=== PATIENT | male | born 1990 | race African-American/Black ===

== ENCOUNTER 2021-04-16 18:16 | Inpatient (IN) | payer OTHER, SELFPAY ==
[2021-04-16] VITALS (9 sets, daily range): BP systolic 142–158; BP diastolic 54–89; PULSE 53–57; RESP 15–20; TEMP 36.7–37.4; O2SAT 100; BMI 30.7
--- NOTE | ~2021-04-16 | US_ITS ---
EXAMINATION: US ABDOMEN LIMITED CLINICAL INFORMATION: Right upper quadrant pain questionable cholecystitis. COMPARISON: None TECHNIQUE: Real-time imaging of the right upper quadrant abdominal viscera. FINDINGS: GALLBLADDER: Gallbladder is abnormal with thick and irregular wall measuring between 0.6 and 1.7 cm with pericholecystic fluid collection is impacted in gallbladder neck 2.1 x 0.9 x 1.4 cm stone. Sonographic Hazel sign is positive for that COMMON BILE DUCT: Normal in caliber measuring 0.7 cm in diameter. US/US abdomen limited IMPRESSION: Limited right upper quadrant ultrasound revealed features of acute calculus cholecystitis
[2021-04-16 18:42] LABS: MANUAL DIFF FLAG NO
[2021-04-16 18:44] LABS: Basophils Absolute Auto 0.1 X10*3/uL (0.0-0.2); Basophils Percent Auto 0.5 % (0-2); Eosinophils Percent Auto 0.1 % (0-4); Hemoglobin 15.2 g/dl (14.0-18.0); Imm Gran Abs Auto 0.08 X10*3/uL (0.00-0.03); Imm Gran Pct Auto 0.5 % (0.0-0.4); Lymphocytes Absolute Auto 1.9 X10*3/uL (1.2-4.9); Lymphocytes Percent Auto 11.4 % (20-40); Mean Corpuscular HGB Conc 35.3 g/dl (31.0-36.0); Mean Corpuscular Hemoglobin 29.2 pg (27.0-33.0); Mean Corpuscular Volume 82.7 fL (80.0-98.0); Mean Platelet Volume 9.8 fL (9.4-12.4); Monocytes Absolute Auto 0.8 X10*3/uL (0.1-1.2); Monocytes Percent Auto 4.9 % (2-11); Neutrophils Absolute Auto 13.6 x10*3/uL (2.0-8.3); Neutrophils Percent Auto 82.6 % (45-73); Platelet Count 399 X10*3/uL (160-400); Red Cell Distribution Width 12.8 % (11.0-16.0); White Blood Count 16.5 X10*3/uL (4.8-10.8)
[2021-04-16 18:52] LABS: Appearance Urine CLEAR; Color Urine YELLOW; Glucose Urine UA NEG (NEG); Leukocyte Esterase Urine NEG (NEG); Nitrite Urine NEG (NEG); PH >= 9.0 (5.0-8.0); UACC Culture Trigger NO; Urine Blood NEG (NEG); Urine Ketones 40 MG/DL (NEG); Urine Protein 1+ MG/DL (NEG-TRACE)
[2021-04-16 18:59] LABS: RBC Urine 0-2 /HPF (0); WBC Urine 0 /HPF (0-4)
[2021-04-16 19:00] LABS: Mucus Urine 1+ /LPF
[2021-04-16 19:09] LABS: COVID-19 Test Negative (Negative)
[2021-04-16 19:12] LABS: Alanine Aminotransferase 75 U/L (0-40); Albumin Level 5.2 g/dL (3.5-5.0); Alkaline Phosphatase 54 U/L (39-117); Anion Gap 13 (12-20); Aspartate Amino Transferase 30 U/L (5-37); Bilirubin Direct 0.5 mg/dL (0.0-0.5); Bilirubin Total 1.2 mg/dL (0.0-1.0); Blood Urea Nitrogen 11 mg/dL (9-16); Calcium 10.9 mg/dL (8.4-10.2); Carbon Dioxide 27 mmol/L (22-29); Chloride 105 mmol/L (96-108); Estimated Glomerular Filt Rate > 60; Glucose Random 117 mg/dL (60-115); Lipase 18 U/L (8-78); Potassium 4.2 mmol/L (3.3-5.1); Sodium 141 mmol/L (135-145); Total Protein 8.3 g/dL (6.5-8.0)
--- NOTE | 2021-04-16 20:24 | ED_ITS ---
HPI - Abdominal Pain General Chief Complaint: Abdominal Pain Stated Complaint: severe abdominal pain, chills, cold sweats, throw Time Seen by Provider: 04/16/21 20:24 Source: patient Mode of arrival: ambulatory Limitations: no limitations History of Present Illness HPI narrative: Patient with no significant past medical history workup today went to work started having right upper quadrant and epigastric abdominal pain patient with nausea and vomiting no fever no chills been is getting worse no urinary complaints no back pain or radiation of the pain to the back no blood in the stool Related Data Home Medications Medication Instructions Recorded Confirmed No Known Home Meds 04/16/21 04/16/21 Allergies Allergy/AdvReac Type Severity Reaction Status Date / Time Iodinated Contrast Media Allergy Anxiety Verified 04/16/21 18:22 [Contrast Dye] Review of Systems Review of Systems Yes all other systems are reviewed and are negative [facility] Social History Social History Advance Directives: No Advance Directives Information Provided: Yes Physical Exam ED Vital Signs: Vital Signs - 24 hr 04/16/21 18:22 04/16/21 19:43 04/16/21 20:53 Temperature 98.6 F 98.0 F Pulse Rate 53 54 Respiratory Rate 18 15 20 Blood Pressure 151/54 H 144/78 H Pulse Oximetry 100 100 04/16/21 21:01 04/16/21 22:00 04/16/21 22:04 Temperature 99.4 F Pulse Rate 57 55 55 Respiratory Rate 18 16 16 Blood Pressure 142/84 H 155/80 H 155/80 H Pulse Oximetry 100 100 04/16/21 22:08 Temperature Pulse Rate Respiratory Rate 16 Blood Pressure Pulse Oximetry BMI result Body Mass Index 30.7 Appearance: Alert. Oriented X3. In moderate distress Eyes: No pallor or icterus ENT: Pharynx normal. Oral Mucosa moist Neck: Normal inspection. Neck supple. CVS: Normal heart rate and rhythm. Pulses normal. Respiratory: No respiratory distress. Equal air entry bilateral, no wheezing/rales/rhonchi Abdomen: Soft , tenderness at right upper quadrant epigastric area with guarding no rebound tenderness Hazel sign positive Bowel sounds are present, no mass palpable, no CVA tenderness Skin: Skin warm and dry. Normal skin color. Normal skin turgor. Extremities: No lower extremity edema. No calf tenderness Neuro: Oriented X 3. MDM - Abdominal Pain MDM Narrative Medical decision making narrative: Patient right upper quadrant pain ultrasound showed 2.1 x 0.9 x 1.4 cm gallbladder neck stone pericholecystic fluid collection suggestive of cholecystitis case discussed Dr. Louise will admit patient for cholecystectomy IV Zosyn was given Lab Data Attestation: I reviewed the patient's lab results. Result diagrams: 04/16/21 18:30 04/16/21 18:30 Labs: Lab Results 04/16/21 04/16/21 04/16/21 Range/Units 18:30 18:30 18:30 WBC 16.5 H (4.8-10.8) X10*3/uL RBC 5.20 (4.60-5.80) X10*6/uL Hgb 15.2 (14.0-18.0) g/dl Hct 43.0 (42.0-52.0) % MCV 82.7 (80.0-98.0) fL MCH 29.2 (27.0-33.0) pg MCHC 35.3 (31.0-36.0) g/dl RDW 12.8 (11.0-16.0) % Plt Count 399 (160-400) X10*3/uL MPV 9.8 (9.4-12.4) fL Immature Gran % (Auto) 0.5 H (0.0-0.4) % Neut % (Auto) 82.6 H (45-73) % Lymph % (Auto) 11.4 L (20-40) % [place] % (Auto) 4.9 (2-11) % Eos % (Auto) 0.1 (0-4) % Baso % (Auto) 0.5 (0-2) % Lymph # (Auto) 1.9 (1.2-4.9) X10*3/uL [place] # (Auto) 0.8 (0.1-1.2) X10*3/uL Eos # (Auto) 0.0 (0.0-0.4) X10*3/uL Baso # (Auto) 0.1 (0.0-0.2) X10*3/uL Abs Immat Gran (auto) 0.08 H (0.00-0.03) X10*3/uL Absolute Neuts (auto) 13.6 H (2.0-8.3) x10*3/uL Absolute Nucleated RBC 0.000 (0.0-0.012) X10*3/uL Nucleated RBC % (auto) 0.0 (0.0-0.2) /100WBC Sodium 141 (135-145) mmol/L Potassium 4.2 (3.3-5.1) mmol/L Chloride 105 (96-108) mmol/L Carbon Dioxide 27 (22-29) mmol/L Anion Gap 13 (12-20) BUN 11 (9-16) mg/dL Creatinine 0.93 (0.5-1.4) mg/dL Estim Creat Clear Calc 141.0 Estimated GFR > 60 Random Glucose 117 H (60-115) mg/dL Lactic Acid (0.5-2.0) mmol/L Calcium 10.9 H (8.4-10.2) mg/dL Total Bilirubin 1.2 H (0.0-1.0) mg/dL Direct Bilirubin 0.5 (0.0-0.5) mg/dL AST 30 (5-37) U/L ALT 75 H (0-40) U/L Alkaline Phosphatase 54 (39-117) U/L Total Protein 8.3 H (6.5-8.0) g/dL Albumin 5.2 H (3.5-5.0) g/dL Lipase 18 (8-78) U/L Urine Color Urine Appearance Urine pH (5.0-8.0) Ur Specific [place] (1.005-1.025) Urine Protein (NEG-TRACE) MG/DL Urine Glucose (UA) (NEG) MG/DL Urine Ketones (NEG) MG/DL Urine Blood (NEG) Urine Nitrite (NEG) Ur Leukocyte Esterase (NEG) Urine RBC (0) /HPF Urine WBC (0-4) /HPF Ur Squamous Epith Cells /LPF Urine Bacteria /LPF Urine Mucus /LPF COVID-19 ([facility]) Negative (Negative) COVID-19 Clin Com See Note 04/16/21 04/16/21 Range/Units 18:41 20:48 WBC (4.8-10.8) X10*3/uL RBC (4.60-5.80) X10*6/uL Hgb (14.0-18.0) g/dl Hct (42.0-52.0) % MCV (80.0-98.0) fL MCH (27.0-33.0) pg MCHC (31.0-36.0) g/dl RDW (11.0-16.0) % Plt Count (160-400) X10*3/uL MPV (9.4-12.4) fL Immature Gran % (Auto) (0.0-0.4) % Neut % (Auto) (45-73) % Lymph % (Auto) (20-40) % [place] % (Auto) (2-11) % Eos % (Auto) (0-4) % Baso % (Auto) (0-2) % Lymph # (Auto) (1.2-4.9) X10*3/uL [place] # (Auto) (0.1-1.2) X10*3/uL Eos # (Auto) (0.0-0.4) X10*3/uL Baso # (Auto) (0.0-0.2) X10*3/uL Abs Immat Gran (auto) (0.00-0.03) X10*3/uL Absolute Neuts (auto) (2.0-8.3) x10*3/uL Absolute Nucleated RBC (0.0-0.012) X10*3/uL Nucleated RBC % (auto) (0.0-0.2) /100WBC Sodium (135-145) mmol/L Potassium (3.3-5.1) mmol/L Chloride (96-108) mmol/L Carbon Dioxide (22-29) mmol/L Anion Gap (12-20) BUN (9-16) mg/dL Creatinine (0.5-1.4) mg/dL Estim Creat Clear Calc Estimated GFR Random Glucose (60-115) mg/dL Lactic Acid 1.6 (0.5-2.0) mmol/L Calcium (8.4-10.2) mg/dL Total Bilirubin (0.0-1.0) mg/dL Direct Bilirubin (0.0-0.5) mg/dL AST (5-37) U/L ALT (0-40) U/L Alkaline Phosphatase (39-117) U/L Total Protein (6.5-8.0) g/dL Albumin (3.5-5.0) g/dL Lipase (8-78) U/L Urine Color YELLOW Urine Appearance CLEAR Urine pH >= 9.0 H (5.0-8.0) Ur Specific [place] 1.010 (1.005-1.025) Urine Protein 1+ H (NEG-TRACE) MG/DL Urine Glucose (UA) NEG (NEG) MG/DL Urine Ketones 40 (NEG) MG/DL Urine Blood NEG (NEG) Urine Nitrite NEG (NEG) Ur Leukocyte Esterase NEG (NEG) Urine RBC 0-2 (0) /HPF Urine WBC 0 (0-4) /HPF Ur Squamous Epith Cells NONE /LPF Urine Bacteria NONE /LPF Urine Mucus 1+ /LPF COVID-19 ([facility]) (Negative) COVID-19 Clin Com Discharge Plan Discharge Clinical Impression: Acute calculous cholecystitis Patient Disposition: Admitted As Inpatient
[2021-04-16] MEDS: ondansetron HCL 4 MG/2 ML VIAL IVPUSH (20:53)
[2021-04-16] MEDS: Morphine Sulfate 4 MG/ML CARTRIDGE IVPUSH ×2 (20:53→22:08)
[2021-04-16] MEDS: 0.9 % Sodium Chloride 1,000 ML 999 ML IV ×2 (20:55→22:05)
[2021-04-16 21:10] LABS: Lactic Acid 1.6 mmol/L (0.5-2.0)
--- NOTE | 2021-04-16 21:11 | PC.NURSE ---
ultra sound at bedside completed pt estefania well. lab, iv, and medication completed with pain relief in progress.
[2021-04-16] MEDS: Piperacillin Sodium/Tazobactam 3.375 GM in 0.9 % Sodium Chloride 50 ML IV (22:08)
[2021-04-16] MEDS: Dextrose 5 % and Lactated Ring 1,000 ML 125 ML IVCONT (23:50)
[2021-04-17] VITALS (15 sets, daily range): BP systolic 133–164; BP diastolic 47–78; PULSE 54–92; RESP 14–20; TEMP 36.7–37.8; O2SAT 97–100
[2021-04-17] MEDS: Piperacillin Sodium/Tazobactam 3.375 GM in 0.9 % Sodium Chloride 50 ML IV ×4 (04:09→22:08)
[2021-04-17] MEDS: Dextrose 5 % and Lactated Ring 1,000 ML 125 ML IVCONT ×2 (06:10→15:19)
--- NOTE | 2021-04-17 06:11 | PC.NURSE ---
pt has reamained NPO since noon yesterday 04/16/21
[2021-04-17] MEDS: 0.9 % Sodium Chloride Flush 3 ML SYRINGE IVFLUSH (07:20)
--- NOTE | 2021-04-17 07:21 | PC.NURSE ---
rn to rn report given to lee bee aware of plan of care for surgery and transfer to overflow ed.
--- NOTE | 2021-04-17 07:27 | PM.HPGS ---
History of Present Illness History of Present Illness Date of Service: 04/17/21 Chief complaint: Acute cholecystitis Narrative: Sachin Crowley JR is a 31 year old male previously healthy, presenting with complaints of abdominal pain in the right upper quadrant starting yesterday morning. He reports eating [employer] the day prior in feels he has not been eating well recently. He subsequently went to work however the pain became too severe and up going home. While at home the pain increased and was associated with dry heaves. He subsequently presented to the emergency department for further evaluation. He denies a previous history of similar abdominal pain. He denies fever, chills, vomiting, diarrhea, or other associated symptoms. Workup in the emergency department revealed a gallstone within the gallbladder at the neck with wall thickening and tenderness on palpation of the gallbladder. Findings are consistent with acute cholecystitis. He is admitted to the surgical service for management of this acute cholecystitis. This morning he feels moderately improved with decreased abdominal pain and no further nausea. Review of Systems Review of Systems: Yes all other systems are reviewed and are negative Constitutional: Constitutional: Reports anorexia, Denies chills, Denies fever(s), Denies headache(s) and Denies poor appetite ENT: Denies dizziness and Denies headache(s) Cardiovascular: Cardiovascular: Denies chest pain, Denies rapid heart rate, Denies palpitations and Denies slow heart rate Respiratory: Respiratory: Denies chest congestion, Denies cough, Denies pain on inspiration and Denies wheezing Gastrointestinal: Gastrointestinal: Reports abdominal pain, Denies bloating, Denies change in stool character, Denies constipation, Denies diarrhea, Reports nausea, Denies vomiting and Denies hematemesis Musculoskeletal: Musculoskeletal: Denies back pain, Denies arthralgias, Denies joint swelling and Denies numbness Integumentary/Breasts: Skin/Breast: Denies change in pigmentation, Denies erythema and Denies rash Neurologic: Denies dizziness, Denies headache(s) and Denies numbness Psychiatric: Psychiatric: Denies anxiety and Denies depression Endocrine: Endocrine: Denies palpitations Hematologic/Lymphatic: Hematologic/Lymphatic: Denies easy bleeding, Denies easy bruising and Denies lymphadenopathy Allergic/Immunologic: Allergic/Immunologic: Denies wheezing PMFSH Social History Social History Alcohol intake: current Alcohol intake frequency: holidays/special occasions only Alcohol type: beer Patient Tobacco Use Status: Current everyday Tobacco user Substance Use Type: Marijuana Substance Use Frequency: Daily Last Used Substance: Days (ago) Any prior treatment program specific to substance use: No Advance Directives: No Advance Directives Information Provided: Yes Meds Allergies Allergy/AdvReac Type Severity Reaction Status Date / Time Iodinated Contrast Media Allergy Anxiety Verified 04/16/21 18:22 [Contrast Dye] Active Medications: Current Medications Acetaminophen (Acetaminophen 325 Mg Tablet) 650 mg PO QID PRN PRN Reason: headache, temp > 101 Hydromorphone HCl (Hydromorphone Hcl 1 Mg/Ml Syringe) 0.5 mg IVPUSH Q3H PRN; Protocol PRN Reason: Pain, Severe (Pain Scale 7-10) Dextrose/Lactated Ringer's (D5lr) 1,000 mls @ 125 mls/hr IVCONT .Q8H [facility] Last Admin: 04/17/21 06:10 Dose: 125 mls/hr Documented by: Piperacillin Sod/Tazobactam (Sod 3.375 gm/ Sodium Chloride) 50 mls @ 100 mls/hr IV Q6H [facility] Last Infusion: 04/17/21 06:04 Dose: Infused Documented by: Ondansetron HCl (Ondansetron Hcl 4 Mg/2 Ml Vial) 4 mg IVPUSH QID PRN PRN Reason: Nausea Oxycodone HCl (Oxycodone Hcl Immed Release 5 Mg Tablet) 5 mg PO Q6H PRN PRN Reason: Pain, Moderate (Pain Scale 4-6 Sodium Chloride (0.9 % Sodium Chloride Flush 3 Ml Syringe) 3 ml IVFLUSH QSHIFT [facility] Last Admin: 04/17/21 07:20 Dose: 3 ml Documented by: Zolpidem Tartrate (Zolpidem Tartrate 5 Mg Tablet) 5 mg PO BEDTIME PRN PRN Reason: Insomnia Home Medications Medication Instructions Recorded Confirmed Last Taken Type No Known Home Meds 04/16/21 04/16/21 Unknown History Physical Exam Vital Signs: Vital Signs: Last Vital Signs Temp 98.8 F 04/17/21 07:13 Pulse 66 04/17/21 07:13 Resp 20 04/17/21 07:13 BP 144/64 H 04/17/21 07:13 Pulse Ox 99 04/17/21 07:13 BMI result Body Mass Index 30.7 Const: General: cooperative, comfortable and well developed Nutritional Appearance: well nourished Orientation/consciousness: patient oriented x3 Eyes: Sclerae: sclerae normal EOM: EOMs intact bilaterally Neck: Neck: Yes normal visual inspection Resp: Effort & Inspection: normal respiratory effort, no cough, no respiratory distress and no stridor Cardio: Jugular venous distension: no JVD GI: Inspection: Yes normal to inspection Palpation (GI): Soft to palpation, Tenderness to palpation present (GI) in the RUQ and Hazel's sign positive, no guarding, not rigid and No hepatosplenomegaly present Skin: General skin exam: dry skin Rashes: no rashes Neuro: General: patient oriented x3 and no focal motor deficits Extrem: General: Yes full ROM and Yes no clubbing, cyanosis or edema Psych: Appearance: grossly normal Results Results Labs: Short CBC 04/16/21 Range/Units 18:30 WBC 16.5 H (4.8-10.8) X10*3/uL Hgb 15.2 (14.0-18.0) g/dl Hct 43.0 (42.0-52.0) % Plt Count 399 (160-400) X10*3/uL BMP 04/16/21 18:30 Sodium 141 Potassium 4.2 Chloride 105 Carbon Dioxide 27 BUN 11 Creatinine 0.93 Calcium 10.9 H Liver Function 04/16/21 Range/Units 18:30 Total Bilirubin 1.2 H (0.0-1.0) mg/dL Direct Bilirubin 0.5 (0.0-0.5) mg/dL AST 30 (5-37) U/L ALT 75 H (0-40) U/L Alkaline Phosphatase 54 (39-117) U/L Albumin 5.2 H (3.5-5.0) g/dL Urine 04/16/21 Range/Units 18:41 Urine Color YELLOW Urine Appearance CLEAR Urine pH >= 9.0 H (5.0-8.0) Ur Specific [place] 1.010 (1.005-1.025) Urine Protein 1+ H (NEG-TRACE) MG/DL Urine Glucose (UA) NEG (NEG) MG/DL Assessment and Plan (1) Acute calculous cholecystitis: Status: Acute Plan 31-year-old male patient presenting with complaints of abdominal pain in the right upper quadrant of 24 hours duration. Pain is associated with nausea without vomiting. He denies a previous history of similar pain. Workup in the emergency department revealed an elevated WBC and gallstones within the gallbladder with wall thickening and pericholecystic fluid. Findings are consistent with acute cholecystitis. I recommended a laparoscopic or possible open cholecystectomy. After discussion of the procedure, risks, and alternatives, he consents to the surgery. He has been added to the OR schedule for today. Quality Stroke Does the patient have a stroke diagnosis?: No VTE Prior VTE?: No VTE Risk Level:: Surgical - moderate VTE Device Contraindication: N/A - Device Ordered VTE Drug Contraindication: Treatment Not Indicated Procedures Date of Service Date of Service: 04/17/21
--- NOTE | 2021-04-17 07:45 | PC.NURSE ---
Addendum entered by Bora Krueger RN 04/17/21 07:50: previous note in error. surgery at bedside to evaluate patient. denies any needs, surgery later today Original Note: respiratory at bedside to administer duo neb
[2021-04-17] MEDS: Acetaminophen 325 MG TABLET 650 MG PO (09:56)
--- NOTE | 2021-04-17 10:38 | PC.NURSE ---
Pt comes over from the main ED, A&Ox4, NPO over 12 hours, no complaints of pain at this time. IV fluids running as per MAR orders. Plan for OR this afternoon, pt aware and agreeable to plan. Abd TTP in R quadrants. Ambulates independently. Call bland within reach. Will continue to monitor.
[2021-04-17] MEDS: HYDROmorphone HCl 1 MG/ML SYRINGE 0.5 MG IVPUSH (15:14)
--- NOTE | 2021-04-17 19:12 | HO.ANESPROP2 ---
[facility] Active Problems Active Problems: All Active Problems (Updated 04/16/21 @ 21:58 by Obed Felder MD) Acute calculous cholecystitis (Acute) Past Medical History Functional capacity: independent ambulation Family History Family history of problems with anesthesia: No Surgical History History of Problems with Anesthesia: No Social History Social History Household Members: Family Housing: House Do you presently have visiting nurse or other home services: No Alcohol intake: current Alcohol intake frequency: holidays/special occasions only Alcohol type: beer Patient Tobacco Use Status: Current everyday Tobacco user Tobacco use type: Cigarette e-Cigarette/Vaping Use: Never Used Second Hand Smoke Exposure: No Substance Use Type: Marijuana Meds Allergies Allergy/AdvReac Type Severity Reaction Status Date / Time Iodinated Contrast Media Allergy Anxiety Verified 04/16/21 18:22 [Contrast Dye] Active Medications: Current Medications Acetaminophen (Acetaminophen 325 Mg Tablet) 650 mg PO QID PRN PRN Reason: headache, temp > 101 Last Admin: 04/17/21 09:56 Dose: 650 mg Documented by: Hydromorphone HCl (Hydromorphone Hcl 1 Mg/Ml Syringe) 0.5 mg IVPUSH Q3H PRN; Protocol PRN Reason: Pain, Severe (Pain Scale 7-10) Last Admin: 04/17/21 15:14 Dose: 0.5 mg Documented by: Dextrose/Lactated Ringer's (D5lr) 1,000 mls @ 125 mls/hr IVCONT .Q8H [facility] Last Admin: 04/17/21 15:19 Dose: 125 mls/hr Documented by: Piperacillin Sod/Tazobactam (Sod 3.375 gm/ Sodium Chloride) 50 mls @ 100 mls/hr IV Q6H [facility] Last Infusion: 04/17/21 15:56 Dose: Infused Documented by: Ondansetron HCl (Ondansetron Hcl 4 Mg/2 Ml Vial) 4 mg IVPUSH QID PRN PRN Reason: Nausea Oxycodone HCl (Oxycodone Hcl Immed Release 5 Mg Tablet) 5 mg PO Q6H PRN PRN Reason: Pain, Moderate (Pain Scale 4-6 Sodium Chloride (0.9 % Sodium Chloride Flush 3 Ml Syringe) 3 ml IVFLUSH QSHIFT [facility] Last Admin: 02/16/22 12:58 Dose: Not Given Documented by: Zolpidem Tartrate (Zolpidem Tartrate 5 Mg Tablet) 5 mg PO BEDTIME PRN PRN Reason: Insomnia Home Medications Medication Instructions Recorded Confirmed Last Taken Type No Known Home Meds 04/16/21 04/16/21 Unknown History Exam Exam Date and Time: April 17, 20211911 Height,Weight and Vital Signs: Height 5 ft 11 in Weight 99.79 kg Last Vital Signs Temp 99.6 F 04/17/21 15:13 Pulse 65 04/17/21 15:13 Resp 20 04/17/21 15:13 BP 159/74 H 04/17/21 15:13 Pulse Ox 98 04/17/21 15:13 Pertinent Lab Results Pertinent Lab Results: Laboratory Tests 04/16/21 04/16/21 04/16/21 18:30 18:30 18:30 WBC 16.5 H RBC 5.20 Hgb 15.2 Hct 43.0 MCV 82.7 MCH 29.2 MCHC 35.3 RDW 12.8 Plt Count 399 MPV 9.8 Immature Gran % (Auto) 0.5 H Neut % (Auto) 82.6 H Lymph % (Auto) 11.4 L [place] % (Auto) 4.9 Eos % (Auto) 0.1 Baso % (Auto) 0.5 Lymph # (Auto) 1.9 [place] # (Auto) 0.8 Eos # (Auto) 0.0 Baso # (Auto) 0.1 Abs Immat Gran (auto) 0.08 H Absolute Neuts (auto) 13.6 H Absolute Nucleated RBC 0.000 Nucleated RBC % (auto) 0.0 Sodium 141 Potassium 4.2 Chloride 105 Carbon Dioxide 27 Anion Gap 13 BUN 11 Creatinine 0.93 Estim Creat Clear Calc 141.0 Estimated GFR > 60 Random Glucose 117 H Lactic Acid Calcium 10.9 H Total Bilirubin 1.2 H Direct Bilirubin 0.5 AST 30 ALT 75 H Alkaline Phosphatase 54 Total Protein 8.3 H Albumin 5.2 H Lipase 18 Urine Color Urine Appearance Urine pH Ur Specific [place] Urine Protein Urine Glucose (UA) Urine Ketones Urine Blood Urine Nitrite Ur Leukocyte Esterase Urine RBC Urine WBC Ur Squamous Epith Cells Urine Bacteria Urine Mucus COVID-19 ([facility]) Negative COVID-19 Clin Com See Note 04/16/21 04/16/21 18:41 20:48 WBC RBC Hgb Hct k MCV MCH MCHC RDW Plt Count MPV Immature Gran % (Auto) Neut % (Auto) Lymph % (Auto) [place] % (Auto) Eos % (Auto) Baso % (Auto) Lymph # (Auto) [place] # (Auto) Eos # (Auto) Baso # (Auto) Abs Immat Gran (auto) Absolute Neuts (auto) Absolute Nucleated RBC Nucleated RBC % (auto) Sodium Potassium Chloride Carbon Dioxide Anion Gap BUN Creatinine Estim Creat Clear Calc Estimated GFR Random Glucose Lactic Acid 1.6 Calcium Total Bilirubin Direct Bilirubin AST ALT Alkaline Phosphatase Total Protein Albumin Lipase Urine Color YELLOW Urine Appearance CLEAR Urine pH >= 9.0 H Ur Specific [place] 1.010 Urine Protein 1+ H Urine Glucose (UA) NEG Urine Ketones 40 Urine Blood NEG Urine Nitrite NEG Ur Leukocyte Esterase NEG Urine RBC 0-2 Urine WBC 0 Ur Squamous Epith Cells NONE Urine Bacteria NONE Urine Mucus 1+ COVID-19 ([facility]) COVID-19 Clin Com Airway Mallampati Class: III TM Dist: >3cm Neck ROM: Full Heart: RRR Lungs: CTA Assessment and Plan Final Anesthetic Review Family History of Problems with Anesthesia: No History of Problems with Anesthesia: No ASA Class: II and Emergency Final Preanesthetic Review: No Changes in Pt Med Stat, Meds/Allgs Chart Reviewed, Consent Obtained/Reviewed and Anes Risks/Benef Reviewed Patient Risk: Low Procedure Risk: Intermediate Anesthetic Plan Anesthetic Plan: GA Disposition: Standard PACU
--- NOTE | 2021-04-17 21:03 | W.PM.OPN ---
Operative Note Operative Note Date of Service: 04/17/21 Narrative: Preoperative diagnosis: Acute cholecystitis, cholelithiasis Postoperative diagnosis: Same Procedure: Laparoscopic cholecystectomy Surgeon: Angel Louise MD Loss Control Consultant: Dov Beckman MD Anesthesia: General endotracheal Indications for procedure: 31-year-old male patient with acute onset of abdominal pain in the right upper quadrant associated with nausea and vomiting. Patient was found to have an impacted large gallstone at the neck of the gallbladder on evaluation in the emergency department. His WBC was also found to be elevated. Presents for laparoscopic or possible open cholecystectomy. Operative findings: Acutely inflamed gallbladder with a large gallstone at the neck of the gallbladder. There was markedly distended gallbladder and wall thickening. Liver appeared fatty. Specimen: gallbladder Estimated blood loss: 25 mL Complications: none Procedure details: Patient was brought to the OR and placed in a supine position. After administering general anesthesia the patient's abdomen was prepped with ChloraPrep and draped in a sterile fashion. Local anesthesia consisting of 0.5% Sensorcaine without epinephrine was infiltrated in a periumbilical region. A 5 mm incision was made above the umbilicus in a transverse fashion. The Veress needle was then inserted while elevating abdominal cavity with towel clips. After positive drop test the abdomen was insufflated to a pressure of 15 mm of mercury. The Veress needle was then removed and a 5 mm trocar inserted. The camera was inserted in the abdomen explored. A 12 mm trocar was then placed in the epigastrium and two 5 mm trocars placed in the right upper quadrant. The patient was placed in reverse Trendelenburg positioning and rotated to the left. The gallbladder was grasped with the fundus and retracted cephalad.. The infundibulum was then grasped and retracted away from the liver bed. The Dolphin dissected was then used to dissect the peritoneum off the infundibulum to reveal the junction with the cystic duct. Cystic artery was noted slightly medial and posterior to the cystic duct. After obtaining a critical view the cystic duct was doubly clipped and divided. The cystic artery was then doubly clipped and divided. The gallbladder was then dissected off the liver bed using electrocautery with an L hook. Hemostasis was assured all times using the electrocautery. When the gallbladder is completely dissected off the liver bed was placed in an Endo-Catch bag and brought out through the epigastric incision. The gallbladder was sent to pathology for further examination. The abdomen was then re-examined. The liver bed was irrigated and suctioned dry. No bleeding or bile leak could be identified. Because the gallbladder was acutely inflamed a John-Acosta drain was left in place and brought out through the lateral trocar site. This was secured to the skin edge with a nylon suture and connected to bulb suction. CO2 was then evacuated and all trocars removed. Fascia was closed at the epigastric incision using a [id number] Polysorb suture. Skin was closed in all incisions using a subcuticular 4 0 Polysorb suture. Sterile dressings consisting of Steri-Strips, 2 x 2 gauze, and Tegaderm were then applied. The patient tolerated the procedure well. Sponge instrument and needle counts reported as correct. The patient was transferred to PACU in stable condition.
[2021-04-17] MEDS: oxyCODONE HCl Immed Release 5 MG TABLET PO (22:22)
[2021-04-18] VITALS (7 sets, daily range): BP systolic 140–180; BP diastolic 52–90; PULSE 65–72; RESP 16–18; TEMP 36.6–37.2; O2SAT 96–99
[2021-04-18] MEDS: Dextrose 5 % and Lactated Ring 1,000 ML 125 ML IVCONT (00:13)
[2021-04-18] MEDS: Piperacillin Sodium/Tazobactam 3.375 GM in 0.9 % Sodium Chloride 50 ML IV ×4 (03:48→22:01)
[2021-04-18] MEDS: oxyCODONE HCl Immed Release 5 MG TABLET PO (05:44)
[2021-04-18 05:57] LABS: MANUAL DIFF FLAG NO
[2021-04-18 06:03] LABS: Basophils Percent Auto 0.2 % (0-2); Eosinophils Percent Auto 0.1 % (0-4); Hematocrit 40.2 % (42.0-52.0); Imm Gran Abs Auto 0.09 X10*3/uL (0.00-0.03); Imm Gran Pct Auto 0.5 % (0.0-0.4); Lymphocytes Absolute Auto 1.1 X10*3/uL (1.2-4.9); Lymphocytes Percent Auto 6.7 % (20-40); Mean Corpuscular HGB Conc 34.8 g/dl (31.0-36.0); Mean Corpuscular Hemoglobin 28.7 pg (27.0-33.0); Mean Corpuscular Volume 82.4 fL (80.0-98.0); Mean Platelet Volume 9.9 fL (9.4-12.4); Monocytes Absolute Auto 1.3 X10*3/uL (0.1-1.2); Neutrophils Absolute Auto 14.2 x10*3/uL (2.0-8.3); Neutrophils Percent Auto 84.5 % (45-73); Platelet Count 361 X10*3/uL (160-400); Red Blood Count 4.88 X10*6/uL (4.60-5.80); Red Cell Distribution Width 12.5 % (11.0-16.0); White Blood Count 16.8 X10*3/uL (4.8-10.8)
[2021-04-18] MEDS: HYDROmorphone HCl 1 MG/ML SYRINGE 0.5 MG IVPUSH (07:50)
--- NOTE | 2021-04-18 07:50 | P.PNGS_ITS ---
Subjective Subjective Date of Service: 04/18/21 <Jacqueline Collins PA-C - Last Filed: 04/18/21 07:54> 04/18/21 <Angel Louise MD - Last Filed: 04/18/21 07:57> Interval history: Sore this morning, medication helping. Has not eaten anything or been OOB. Used IS once or twice. <Jacqueline Collins PA-C - Last Filed: 04/18/21 07:54> Physical Exam Vital Signs: Vital Signs: Last Vital Signs Temp 98.9 F 04/18/21 07:42 Pulse 72 04/18/21 07:42 Resp 17 04/18/21 07:42 BP 155/66 H 04/18/21 07:42 Pulse Ox 98 04/18/21 07:42 BMI result Body Mass Index 30.7 <Jacqueline Collins PA-C - Last Filed: 04/18/21 07:54> Const: General: comfortable, no acute distress and alert <Jacqueline Collins PA-C - Last Filed: 04/18/21 07:54> Orientation/consciousness: patient oriented x3 <Jacqueline Collins PA-C - Last Filed: 04/18/21 07:54> Resp: Effort & Inspection: normal respiratory effort <Jacqueline Collins PA-C - Last Filed: 04/18/21 07:54> GI: Other: ILENE drain serosanguineous output <Jacqueline Collins PA-C - Last Filed: 04/18/21 07:54> Inspection: No distended and Yes incision (dressings intact) <Jacqueline Collins PA-C - Last Filed: 04/18/21 07:54> Palpation (GI): Soft to palpation, Tenderness to palpation present (GI) (incisional), no guarding and not rigid <MURTAZA Wilson Last Filed: 04/18/21 07:54> Percussion: Yes normal to percussion <Jacqueline Collins PA-C - Last Filed: 04/18/21 07:54> Skin: General skin exam: no rashes or lesions noted <MURTAZA Wilson Last Filed: 04/18/21 07:54> Neuro: General: patient oriented x3 <Jacqueline Collins PA-C - Last Filed: 04/18/21 07:54> Extrem: General: Yes no clubbing, cyanosis or edema <Jacqueline Collins PA-C - Last Filed: 04/18/21 07:54> Objective Data Active Medications Acetaminophen (Acetaminophen 325 Mg Tablet) 650 mg PO QID PRN PRN Reason: headache, temp > 101 Last Admin: 04/17/21 09:56 Dose: 650 mg Documented by: MARLYN Hydromorphone HCl (Hydromorphone Hcl 1 Mg/Ml Syringe) 0.5 mg IVPUSH Q3H PRN; Protocol PRN Reason: Pain, Severe (Pain Scale 7-10) Last Admin: 04/17/21 15:14 Dose: 0.5 mg Documented by: MT Dextrose/Lactated Ringer's (D5lr) 1,000 mls @ 125 mls/hr IVCONT .Q8H [facility] Last Admin: 04/18/21 05:49 Dose: Not Given Documented by: KIMBER Non-Admin Reason: IV Running Piperacillin Sod/Tazobactam (Sod 3.375 gm/ Sodium Chloride) 50 mls @ 100 mls/hr IV Q6H [facility] Last Infusion: 04/18/21 04:22 Dose: 0 mls/hr Documented by: KIMBER Ondansetron HCl (Ondansetron Hcl 4 Mg/2 Ml Vial) 4 mg IVPUSH QID PRN PRN Reason: Nausea Oxycodone HCl (Oxycodone Hcl Immed Release 5 Mg Tablet) 5 mg PO Q4H PRN PRN Reason: Pain, Moderate (Pain Scale 4-6 Oxycodone HCl (Oxycodone Hcl Immed Release 5 Mg Tablet) 10 mg PO Q4H PRN PRN Reason: Pain, Severe (Pain Scale 7-10) Sodium Chloride (0.9 % Sodium Chloride Flush 3 Ml Syringe) 3 ml IVFLUSH QSHIFT [facility] Last Admin: 04/18/21 07:13 Dose: Not Given Documented by: MT Non-Admin Reason: IV Running Sodium Chloride (0.9 % Sodium Chloride Flush 3 Ml Syringe) 3 ml IVFLUSH QSHIFT [facility] Last Admin: 04/18/21 07:13 Dose: Not Given Documented by: MT Non-Admin Reason: IV Running Zolpidem Tartrate (Zolpidem Tartrate 5 Mg Tablet) 5 mg PO BEDTIME PRN PRN Reason: Insomnia <Jacqueline Collins PA-C - Last Filed: 04/18/21 07:54> Labs CBC & Chem 7: : 04/18/21 05:31 04/16/21 18:30 <MURTAZA Wilson Last Filed: 04/18/21 07:54> Labs: Laboratory Results - last 24 hr 04/18/21 05:31 MCV 82.4 MCH 28.7 MCHC 34.8 RDW 12.5 Plt Count 361 MPV 9.9 Immature Gran % (Auto) 0.5 H Neut % (Auto) 84.5 H Lymph % (Auto) 6.7 L [place] % (Auto) 8.0 Eos % (Auto) 0.1 Baso % (Auto) 0.2 Lymph # (Auto) 1.1 L [place] # (Auto) 1.3 H Eos # (Auto) 0.0 Baso # (Auto) 0.0 Abs Immat Gran (auto) 0.09 H Absolute Neuts (auto) 14.2 H Absolute Nucleated RBC 0.000 Nucleated RBC % (auto) 0.0 <MURTAZA Wilson Last Filed: 04/18/21 07:54> Microbiology Microbiology Results: Microbiology 04/16/21 20:48 Blood Culture - Preliminary Blood - Venous No growth after 24 hours. 04/16/21 20:48 Blood Culture - Preliminary Blood - Venous No growth after 24 hours. <MURTAZA Wilson Last Filed: 04/18/21 07:54> Procedures Date of Service Date of Service: 04/18/21 <MURTAZA Wilson Last Filed: 04/18/21 07:54> Progress Note: A&P Assessment and plan (1) Acute calculous cholecystitis: Status: Acute <MURTAZA Wilson Last Filed: 04/18/21 07:54> (2) S/P laparoscopic cholecystectomy: Status: Acute <Jacqueline Collins PA-C - Last Filed: 04/18/21 07:54> Plan 31 year old male admitted with acute cholecystitis now POD #1 s/p lap CCY. Doing well post op. VSS. Abd exam benign with appropriate post op tenderness. Dressings c/d/i, ILENE with serosanguineous output. Will reassess later today. If pain remains controlled and tolerating solid diet,ambulating without difficulty, he is stable for d/c to home.Will remove ILENE drain prior. Patient comfortable with plan. <Jacqueline Collins PA-C - Last Filed: 04/18/21 07:54> Fall Risk Details Current Medications: Current Medications Acetaminophen (Acetaminophen 325 Mg Tablet) 650 mg PO QID PRN PRN Reason: headache, temp > 101 Last Admin: 04/17/21 09:56 Dose: 650 mg Documented by: Hydromorphone HCl (Hydromorphone Hcl 1 Mg/Ml Syringe) 0.5 mg IVPUSH Q3H PRN; Protocol PRN Reason: Pain, Severe (Pain Scale 7-10) Last Admin: 04/17/21 15:14 Dose: 0.5 mg Documented by: Dextrose/Lactated Ringer's (D5lr) 1,000 mls @ 125 mls/hr IVCONT .Q8H [facility] Last Admin: 04/18/21 05:49 Dose: Not Given Documented by: Piperacillin Sod/Tazobactam (Sod 3.375 gm/ Sodium Chloride) 50 mls @ 100 mls/hr IV Q6H [facility] Last Infusion: 04/18/21 04:22 Dose: Infused Documented by: Ondansetron HCl (Ondansetron Hcl 4 Mg/2 Ml Vial) 4 mg IVPUSH QID PRN PRN Reason: Nausea Oxycodone HCl (Oxycodone Hcl Immed Release 5 Mg Tablet) 5 mg PO Q4H PRN PRN Reason: Pain, Moderate (Pain Scale 4-6 Oxycodone HCl (Oxycodone Hcl Immed Release 5 Mg Tablet) 10 mg PO Q4H PRN PRN Reason: Pain, Severe (Pain Scale 7-10) Sodium Chloride (0.9 % Sodium Chloride Flush 3 Ml Syringe) 3 ml IVFLUSH QSHIFT [facility] Last Admin: 04/18/21 07:13 Dose: Not Given Documented by: Sodium Chloride (0.9 % Sodium Chloride Flush 3 Ml Syringe) [facility] Last Admin: 04/18/21 07:13 Dose: Not Given Documented by: Zolpidem Tartrate (Zolpidem Tartrate 5 Mg Tablet) 5 mg PO BEDTIME PRN PRN Reason: Insomnia <Jacqueline Collins PA-C - Last Filed: 04/18/21 07:54> Time Spent With Patient Time: Total time spent is greater than 50% in coordination of care (as documented) at patient's floor/unit and/or counseling patient: <Jacqueline Collins PA-C - Last Filed: 04/18/21 07:54> Time with patient: 15 - 24 minutes <Jacqueline Collins PA-C - Last Filed: 04/18/21 07:54> Quality Stroke Does the patient have a stroke diagnosis?: No <Jacqueline Collins PA-C - Last Filed: 04/18/21 07:54> VTE Prior VTE?: No <Jacqueline Collins PA-C - Last Filed: 04/18/21 07:54> VTE Risk Level:: Surgical - moderate <MURTAZA Wilson Last Filed: 04/18/21 07:54> VTE Device Contraindication: N/A - Device Ordered <MURTAZA Wilson Last Filed: 04/18/21 07:54> VTE Drug Contraindication: Treatment Not Indicated <Jacqueline Collins PA-C - Last Filed: 04/18/21 07:54>
--- NOTE | 2021-04-18 09:07 | P.DS_ITS ---
DS: Providers Provider Date of Service: 04/19/21 Date of admission: 04/16/21 22:12 Primary care physician: None Physician Attending physician on admission: Angel Louise DS: Diagnosis Discharge Diagnosis (1) Acute calculous cholecystitis: Status: Acute (2) S/P laparoscopic cholecystectomy: Status: Acute DS: Summary Hospital Course Hospital Course: BRIEF HPI: Sachin Crowley JR is a 31 year old male previously healthy, presenting with complaints of abdominal pain in the right upper quadrant starting yesterday morning. He reports eating [employer] the day prior in feels he has not been eating well recently. He subsequently went to work however the pain became too severe and up going home. While at home the pain increased and was associated with dry heaves. He subsequently presented to the emergency department for further evaluation. He denies a previous history of similar abdominal pain. He denies fever, chills, vomiting, diarrhea, or other associated symptoms. Workup in the emergency department revealed a gallstone within the gallbladder at the neck with wall thickening and tenderness on palpation of the gallbladder. Findings are consistent with acute cholecystitis. He is admitted to the surgical service for management of this acute cholecystitis. This morning he feels moderately improved with decreased abdominal pain and no further nausea. HOSPITAL COURSE: The patient was admitted for further treatment of the acute cholecystitis. Treatment options were discussed and he elected to proceed with surgery. On 04/17/21, a laparoscopic cholecystectomy was performed by Dr. Louise without complication. He was found to have an acutely inflamed gallbladder with a large gallstone at the neck of the gallbladder and a markedly distended gallbladder with wall thickening. A ILENE drain was left in place. He tolerated the procedure well, completed routine recovery and was admitted for observation. He had an uncomplicated recovery course. He remained inpatient for two nights for pain control. On the day of discharge was tolerating a solid diet, had good pain control on PO analgesics with a benign abd exam and clean incisions. His ILENE drain had scanty serosanguineous, nonbilious output and was removed. He was discharged to home on 04/19/21 in stable condition. Status at Discharge Functional status at discharge: independent ambulation Overall status at discharge: patient is progressing back to baseline Time Spent with Patient Time attestation: Total time spent providing and/or coordinating discharge services: Discharge coordination time: Less than 30 minutes Quality: Stroke Does the patient have a stroke diagnosis?: No Physical Exam Vital Signs: Vital Signs: Last Vital Signs Temp 98.9 F 04/18/21 07:42 Pulse 72 04/18/21 07:42 Resp 17 04/18/21 07:42 BP 155/66 H 04/18/21 07:42 Pulse Ox 98 04/18/21 07:42 BMI result Body Mass Index 30.7 Const: General: comfortable, no acute distress and alert Orientation/consciousness: patient oriented x3 Eyes: Sclerae: sclerae normal GI: Inspection: No distended and Yes incision (clean) Palpation (GI): Soft to palpation, Tenderness to palpation present (GI) (mild, incisional) and no guarding Percussion: Yes normal to percussion Skin: General skin exam: no rashes or lesions noted Neuro: General: patient oriented x3 DS: Data Data Completed and Pending Pending studies at discharge: 04/17/21 20:32 Surgical [PTH] Routine Gallbladder, cholecystectomy: Acute and chronic cholecystitis; cholelithiasis. Labs on day of discharge: Laboratory Results - last 24 hr 04/18/21 05:31 WBC 16.8 H RBC 4.88 Hgb 14.0 Hct 40.2 L MCV 82.4 MCH 28.7 MCHC 34.8 RDW 12.5 Plt Count 361 MPV 9.9 Immature Gran % (Auto) 0.5 H Neut % (Auto) 84.5 H Lymph % (Auto) 6.7 L [place] % (Auto) 8.0 Eos % (Auto) 0.1 Baso % (Auto) 0.2 Lymph # (Auto) 1.1 L [place] # (Auto) 1.3 H Eos # (Auto) 0.0 Baso # (Auto) 0.0 Abs Immat Gran (auto) 0.09 H Absolute Neuts (auto) 14.2 H Absolute Nucleated RBC 0.000 Nucleated RBC % (auto) 0.0 Preliminary micro results at discharge 04/16/21 20:48 Blood Culture - Preliminary Blood - Venous No growth after 24 hours. 04/16/21 20:48 Blood Culture - Preliminary Blood - Venous No growth after 24 hours. Discharge Plan Discharge Patient Disposition: Home, Self-Care Discharge Diagnosis: acute cholecystitis s/p lap CCY Referrals: Angel Louise MD [Physician] - 1 Week Physician,None [Primary Care Provider] - 1 Week Discharge Medications: New oxycodone 5 mg tablet 5 mg PO Q4H PRN (Reason: pain (scale score 7-10)) Qty: 24 0RF docusate sodium [Colace] 100 mg capsule 100 mg PO BID PRN (Reason: constipation) Qty: 30 0RF Discharge Orders: Discharge Order (Routine); Ordered 04/19/21 Ordered By: Jacqueline Collins Diet: low fat, low cholesterol Activity on Discharge: No heavy lifting Stand Alone Forms: Patient Portal Discharge page, Work/School Release Activity Restrictions/Additional Instructions: If the incision area is tender, you may apply an ice pack for short intervals (No more than 20 minutes on, followed by at least 20 minutes off). Do not apply heat. Do not use creams, lotions, or topical antibiotics unless instructed to do so by your surgeon. These can cause infection or allergic reaction. Ok to shower. Remove clear dressings 3 days following your procedure. You have steri strips (small white cloth strips) covering your incision- these will fall off ~1 week. No heavy lifting (>10lbs)! Follow up in office with Dr. Louise in 1 week. ([phone]) Call Your Doctor If: -Your temperature exceeds 101.5? F -You experience excessive pain or swelling -You have an unexpected reaction to medication -You have excessive bleeding -You experience continued vomiting/nausea -Your incision begins to separate -Your incision shows signs of infection such as increased redness, swelling, excessive pain, drainage (light blood or clear fluid is normal) or heat Care Plan Goals: Return to baseline health and gradual return to activity following recovery period. Health Concerns: Acute cholecystitis Plan of Treatment: S/p laparoscopic cholecystectomy Discharge to home F/u in office Assessment: Doing well postop Discharge Date/Time: 04/19/21 11:30
[2021-04-18] MEDS: oxyCODONE HCl Immed Release 5 MG TABLET 10 MG PO ×3 (11:37→22:01)
--- NOTE | 2021-04-18 13:25 | HO.POSTANES ---
Post Anesthesia Evaluation Post Anesthesia Evaluation Vital Signs: Vital Signs Temp Pulse Resp BP Pulse Ox 04/18/21 11:44 97.9 F 69 18 180/87 H 99 04/18/21 07:42 98.9 F 72 17 155/66 H 98 04/18/21 03:19 98.9 F 70 18 159/72 H 96 Anesthesia: General Endotracheal-GETA Mental Status: Awake Pain Control: Satisfactory Nausea/Vomiting: None Hydration: Adequate Anesthesia-Related Issues: No Anes. Related Issues
--- NOTE | 2021-04-18 13:38 | MHC.CM.PN ---
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
[2021-04-18] MEDS: 0.9 % Sodium Chloride Flush 3 ML SYRINGE IVFLUSH ×3 (15:34→22:01)
[2021-04-19 03:01] VITALS: BP 130/63; PULSE 75; RESP 16; TEMP 36.4; O2SAT 98
[2021-04-19] MEDS: oxyCODONE HCl Immed Release 5 MG TABLET PO (03:13)
[2021-04-19] MEDS: Piperacillin Sodium/Tazobactam 3.375 GM in 0.9 % Sodium Chloride 50 ML IV (03:14)
[2021-04-19 07:48] VITALS: BP 138/75; PULSE 69; RESP 18; TEMP 37.2; O2SAT 95
[2021-04-19] MEDS: 0.9 % Sodium Chloride Flush 3 ML SYRINGE IVFLUSH (08:25)
[2021-04-19] MEDS: oxyCODONE HCl Immed Release 5 MG TABLET 10 MG PO (08:48)
[2021-04-19] MEDS: Docusate Sodium 100 MG CAPSULE PO (08:49)
--- NOTE | 2021-04-19 09:18 | P.PNGS_ITS ---
Subjective Subjective Date of Service: 04/19/21 <Jacqueline Collins PA-C - Last Filed: 04/19/21 09:21> 04/19/21 <Angel Louise MD - Last Filed: 04/19/21 10:56> Interval history: Feels well this morning. Pain controlled. Tolerating diet. Wants to go home. <Jacqueline Collins PA-C - Last Filed: 04/19/21 09:21> Physical Exam Vital Signs: Vital Signs: Last Vital Signs Temp 98.9 F 04/19/21 07:48 Pulse 69 04/19/21 07:48 Resp 18 04/19/21 07:48 BP 138/75 04/19/21 07:48 Pulse Ox 95 04/19/21 07:48 BMI result Body Mass Index 30.7 <Jacqueline Collins PA-C - Last Filed: 04/19/21 09:21> Const: General: comfortable, no acute distress and alert <Jacqueline Collins PA-C - Last Filed: 04/19/21 09:21> Orientation/consciousness: patient oriented x3 <Jacqueline Collins PA-C - Last Filed: 04/19/21 09:21> Resp: Effort & Inspection: normal respiratory effort <MURTAZA Wilson Last Filed: 04/19/21 09:21> GI: Other: ILENE scanty serosanguineous drainage <Jacqueline Collins PA-C - Last Filed: 04/19/21 09:21> Inspection: No distended and Yes incision (clean) <Jacqueline Collins PA-C - Last Filed: 04/19/21 09:21> Palpation (GI): Soft to palpation and Tenderness to palpation present (GI) (mild, incisional) <MURTAZA Wilson Last Filed: 04/19/21 09:21> Skin: General skin exam: no rashes or lesions noted <MURTAZA Wilson Last Filed: 04/19/21 09:21> Neuro: General: patient oriented x3 <MURTAZA Wilson Last Filed: 04/19/21 09:21> Extrem: General: Yes no clubbing, cyanosis or edema <Jacqueline Collins PA-C - Last Filed: 04/19/21 09:21> Objective Data Active Medications Acetaminophen (Acetaminophen 325 Mg Tablet) 650 mg PO QID PRN PRN Reason: headache, temp > 101 Last Admin: 04/17/21 09:56 Dose: 650 mg Documented by: MARLYN Hydromorphone HCl (Hydromorphone Hcl 1 Mg/Ml Syringe) 0.5 mg IVPUSH Q3H PRN; Protocol PRN Reason: Pain, Severe (Pain Scale 7-10) Last Admin: 04/18/21 07:50 Dose: 0.5 mg Documented by: MT Piperacillin Sod/Tazobactam (Sod 3.375 gm/ Sodium Chloride) 50 mls @ 100 mls/hr IV Q6H [facility] Last Infusion: 04/19/21 03:54 Dose: 0 mls/hr Documented by: KIMBER Ondansetron HCl (Ondansetron Hcl 4 Mg/2 Ml Vial) 4 mg IVPUSH QID PRN PRN Reason: Nausea Oxycodone HCl (Oxycodone Hcl Immed Release 5 Mg Tablet) 5 mg PO Q4H PRN PRN Reason: Pain, Moderate (Pain Scale 4-6 Last Admin: 04/19/21 03:13 Dose: 5 mg Documented by: KIMBER Oxycodone HCl (Oxycodone Hcl Immed Release 5 Mg Tablet) 10 mg PO Q4H PRN PRN Reason: Pain, Severe (Pain Scale 7-10) Last Admin: 04/19/21 08:48 Dose: 10 mg Documented by: KENDALL Sodium Chloride (0.9 % Sodium Chloride Flush 3 Ml Syringe) 3 ml [facility] Last Admin: 04/19/21 08:25 Dose: 3 ml Documented by: KENDALL Zolpidem Tartrate (Zolpidem Tartrate 5 Mg Tablet) 5 mg PO BEDTIME PRN PRN Reason: Insomnia <Jacqueline Collins PA-C - Last Filed: 04/19/21 09:21> Labs CBC & Chem 7: : 04/18/21 05:31 04/16/21 18:30 <Jacqueline Collins PA-C - Last Filed: 04/19/21 09:21> Microbiology Microbiology Results: Microbiology 04/16/21 20:48 Blood Culture - Preliminary Blood - Venous No growth after 48 hours. 04/16/21 20:48 Blood Culture - Preliminary Blood - Venous No growth after 48 hours. <Jacqueline Collins PA-C - Last Filed: 04/19/21 09:21> Procedures Date of Service Date of Service: 04/19/21 <Jacqueline Collins PA-C - Last Filed: 04/19/21 09:21> Progress Note: A&P Assessment and plan (1) S/P laparoscopic cholecystectomy: Status: Acute <Jacqueline Collins PA-C - Last Filed: 04/19/21 09:21> (2) Acute calculous cholecystitis: Status: Acute <Jacqueline Collins PA-C - Last Filed: 04/19/21 09:21> Plan 31 year old male admitted with acute cholecystitis now POD #2 s/p lap CCY. Doing well post op. VSS. Abd exam benign with appropriate post op tenderness. Incisions clean, ILENE with scanty serosanguineous output. He feels ready for discharge to home, stable for discharge today. ILENE drain removed. F/u in officec in 1 week. Patient comfortable with plan.? <Jacqueline Collins PA-C - Last Filed: 04/19/21 09:21> 31 year old male admitted with acute cholecystitis now POD #2 s/p lap CCY. Doing well post op. VSS. Abd exam benign with appropriate post op tenderness. Incisions clean, ILENE with scanty serosanguineous output. He feels ready for discharge to home, stable for discharge today. ILENE drain removed. F/u in officec in 1 week. Patient comfortable with plan.? Patient feels much improved. Still has some tenderness but otherwise doing well. ILENE drain much clear today, no bile noted. Agree with discharge to home today. He will follow up in the office in approximately 1 week. He should call for fever, chills, nausea, vomiting, or other concerns. <Angel Louise MD - Last Filed: 04/19/21 10:56> Fall Risk Details Current Medications: Current Medications Acetaminophen (Acetaminophen 325 Mg Tablet) 650 mg PO QID PRN PRN Reason: headache, temp > 101 Last Admin: 04/17/21 09:56 Dose: 650 mg Documented by: Hydromorphone HCl (Hydromorphone Hcl 1 Mg/Ml Syringe) 0.5 mg IVPUSH Q3H PRN; Protocol PRN Reason: Pain, Severe (Pain Scale 7-10) Last Admin: 04/18/21 07:50 Dose: 0.5 mg Documented by: Piperacillin Sod/Tazobactam (Sod 3.375 gm/ Sodium Chloride) 50 mls @ 100 mls/hr IV Q6H [facility] Last Infusion: 04/19/21 03:54 Dose: Infused Documented by: Ondansetron HCl (Ondansetron Hcl 4 Mg/2 Ml Vial) 4 mg IVPUSH QID PRN PRN Reason: Nausea Oxycodone HCl (Oxycodone Hcl Immed Release 5 Mg Tablet) 5 mg PO Q4H PRN PRN Reason: Pain, Moderate (Pain Scale 4-6 Last Admin: 04/19/21 03:13 Dose: 5 mg Documented by: Oxycodone HCl (Oxycodone Hcl Immed Release 5 Mg Tablet) 10 mg PO Q4H PRN PRN Reason: Pain, Severe (Pain Scale 7-10) Last Admin: 04/19/21 08:48 Dose: 10 mg Documented by: Sodium Chloride (0.9 % Sodium Chloride Flush 3 Ml [facility]ringe) [facility] Last Admin: 04/19/21 08:25 Dose: 3 ml Documented by: Zolpidem Tartrate (Zolpidem Tartrate 5 Mg Tablet) 5 mg PO BEDTIME PRN PRN Reason: Insomnia <Jacqueline Collins PA-C - Last Filed: 04/19/21 09:21> Time Spent With Patient Time: Total time spent is greater than 50% in coordination of care (as documented) at patient's floor/unit and/or counseling patient: <Jacqueline Collins PA-C - Last Filed: 04/19/21 09:21> Time with patient: 15 - 24 minutes <Jacqueline Collins PA-C - Last Filed: 04/19/21 09:21> Quality Stroke Does the patient have a stroke diagnosis?: No <Jacqueline Collins PA-C - Last Filed: 04/19/21 09:21> VTE Prior VTE?: No <Jacqueline Collins PA-C - Last Filed: 04/19/21 09:21> VTE Risk Level:: Surgical - moderate <Jacqueline Collins PA-C - Last Filed: 04/19/21 09:21 > VTE Device Contraindication: N/A - Device Ordered <Jacqueline Collins PA-C - Last Filed: 04/19/21 09:21> VTE Drug Contraindication: Treatment Not Indicated <Jacqueline Collins PA-C - Last Filed: 04/19/21 09:21>
--- NOTE | 2021-04-19 09:25 | MHC.CM.PN ---
PT MEDICALLY CLEARED FOR D/C HOME SELF-CARE W/FAMILY FOR TRANSPORT.
== END 2021-04-19 11:30 | disposition home or self-care (01) | DRG 263 ==
LOC: HO.ED 21:58 → HO.EDOVER 22:26 → HO.S3 04-17 09:39
PROVIDERS: Admitting Provider Surgery; Emergency Provider Internal Medicine; Visit Provider Surgery
PROC: 0FT44ZZ Resection of Gallbladder, Percutaneous Endoscopic Approach (ICD-10-PCS; CPT 47562; principal; 2021-04-17 17:10)
DX: K80.00 Calculus of gallbladder with acute cholecystitis without obstruction (principal); K76.0 Fatty (change of) liver, not elsewhere classified; F17.210 Nicotine dependence, cigarettes, uncomplicated; Z20.822 Contact with and (suspected) exposure to COVID-19; Z71.6 Tobacco abuse counseling
CPT/HCPCS: 36415; 76705; 80048; 80076; 81001; 83605; 83690; 85025; 87040; 87635; 88304; 96361; 96374; 96375; 96376; 99024; 99285; J1100; J1170; J2250; J2270; J2405; J2543; J3010

== ENCOUNTER → 2021-04-30 13:02 | Outpatient (BNVA) | payer OTHER, SELFPAY | PROVIDERS: Visit Provider Surgery | DX: Z09 Encounter for follow-up examination after completed treatment for conditions other than malignant neoplasm (principal); Z87.19 Personal history of other diseases of the digestive system; Z90.49 Acquired absence of other specified parts of digestive tract | CPT/HCPCS: 99212 ==

== ENCOUNTER 2022-02-19 21:27 | Emergency (ER) | payer OTHER, SELFPAY ==
[2022-02-19 21:45] VITALS: BP 174/91; PULSE 108; RESP 20; TEMP 39.3; O2SAT 98; BMI 29.2
[2022-02-19] MEDS: Acetaminophen 325 MG TABLET 650 MG PO (22:02)
[2022-02-19 22:38] LABS: COVID-19 Test Positive (Negative); IDNOW Serial# 16C4AD1C
--- NOTE | 2022-02-19 22:47 | ED.GENADULT ---
HPI - General Adult General Chief complaint: Upper Respiratory Symptoms Stated complaint: 102-103 fever, chills, L leg infection Time Seen by Provider: 02/19/22 22:00 Source: patient Mode of arrival: ambulatory Limitations: no limitations History of Present Illness HPI narrative: This is a 32-year-old male with no significant medical history presenting to the emergency department with dry cough, fatigue, malaise, body aches and pain, fevers and chills x2 days. Patient also reporting that he has an abscess to his left groin area which has been present for about a week he tells me he popped the abscess a few days ago and since then it has become red hot and swollen. Patient reports children at home with similar symptoms. Patient denies chest pain, shortness of breath, nausea, vomiting, abdominal pain, headache, vision changes, dizziness and weakness. Patient eating and drinking per usual. No changes in urination. Related Data Previous Rx's Medication Instructions Recorded oxycodone 5 mg tablet 5 mg PO Q4H PRN pain (scale score 04/18/21 7-10) #24 tabs docusate sodium 100 mg capsule 100 mg PO BID PRN constipation #30 04/19/21 (Colace) caps cephalexin 500 mg tablet 500 mg PO Q6H 10 days #40 tabs 02/19/22 doxycycline hyclate 100 mg capsule 100 mg PO BID 10 days #20 caps 02/19/22 Allergies Allergy/AdvReac Type Severity Reaction Status Date / Time Iodinated Contrast Media Allergy Anxiety Verified 02/19/22 21:47 [Contrast Dye] Review of Systems Review of Systems: Constitutional : No Weight loss, No Fever, + Chills, + Fatigue, + Malaise ENT/Mouth : No sore throat, No Rhinorrhea Eyes: No Eye Pain, No Swelling, No Redness Cardiovascular : No Chest Pain, No SOB, No Dyspnea on Exertion, No Orthopnea, No Edema, No Palpitations Respiratory : + Cough, No Sputum, No Wheezing Gastrointestinal : No Nausea, No Vomiting, No Diarrhea, No Constipation, No abdominal Pain, No Hematochezia, No Melena Genitourinary : No Dysuria, No Urinary Frequency, No Hematuria, Musculoskeletal : No joint pain, + Myalgias, No Joint Swelling Skin : No Skin Lesions, No rash, + abscess Neuro : No Weakness, No Numbness, No Dizziness, No Headache Psych : No Anxiety/Panic, No Depression All other systems reviewed and are negative Yes all other systems are reviewed and are negative [facility] Past Medical History Attestation statement: The following information was validated with the patient. Source: old records reviewed and nursing notes reviewed Surgical History Hx laparoscopic cholecystectomy Social History Social History Household Members: Family Housing: House Do you presently have visiting nurse or other home services: No Alcohol intake: current Alcohol intake frequency: holidays/special occasions only Alcohol type: beer Patient Tobacco Use Status: Current everyday Tobacco user Tobacco use type: Cigarette e-Cigarette/Vaping Use: Never Used Second Hand Smoke Exposure: No Substance Use Type: Marijuana Advance Directives: No service: No Current occupational status: employed Physical Exam ED Vital Signs: Vital Signs - 24 hr 02/19/22 21:45 Temperature 102.8 F H Pulse Rate 108 H Respiratory Rate 20 Blood Pressure 174/91 H Pulse Oximetry 98 Oxygen Delivery Method Room Air BMI result Body Mass Index 29.2 Patient is noted to be febrile, tachycardic. Appearance: Alert.? Oriented X3.? No acute distress.? Head: Normocephalic, atraumatic, no step-offs or deformities Eyes: Pupils equal, round and reactive to light.? ENT: Pharynx normal.? Neck: Normal inspection.? Neck supple.? CVS: Normal heart rate and rhythm.? Pulses normal.? Respiratory: No respiratory distress.? Breath sounds normal.? Abdomen: Soft and nontender.? Skin: Skin warm and dry.? Normal skin color.? Normal skin turgor.?+ indurated 4cm X3 cm area to the left groin with overlying cellulitis appears to be an abscess that drained Extremities: No lower extremity edema.? No calf ttp. 5/5 strength to bilateral upper and lower extremities Neuro: Oriented X 3.? No motor deficit.? No sensory deficit. CN 2-12 intact Course Reevaluation(s) Reevaluation #1: Patient noted to be COVID positive. Likely why patient is febrile, tachycardic. Patient's temperature improving. Patient will be discharged home with doxycycline and Keflex for abscess. Educated on warm compresses. Educated patient on diagnosis and treatment plan, answered all question, patient verbalizes understanding. At this time patient will be discharged home, advised to return with new or worsening symptoms. Educated on worrisome signs and symptoms and when to return. At this time I feel comfortable discharge home. Time: 22:52 Medications Administered Discontinued Medications Generic Name Dose Route Start Last Admin Trade Name Clayton PRN Reason Stop Dose Admin Acetaminophen 650 mg 02/19/22 21:58 02/19/22 22:02 Acetaminophen 325 Mg Tablet PO 02/19/22 21:59 650 mg ONCE ONE Administration Medical Decision Making Medical Decision Making [facility] Narrative: 0 32-year-old male presents with fatigue, malaise, fevers, chills, dry cough times a few days, reports sick contacts at home. Also reporting an abscess to the left groin area times a week worsening Physical examination with an indurated 4cm X3 cm area to the left groin with overlying cellulitis appears to be an abscess that drained on its own. Patient also noted to have a rapid regular rhythm likely sinus tachycardia. Lungs clear. Abdomen soft nontender nondistended. Negative Cherie bilaterally. Patient likely tachycardic and febrile secondary to viral infection. I do not suspect sepsis. Unlikely PE. Unlikely pneumonia. Abscesses not require draining as it is indurated. However there is concern for cellulitis. Unlikely TN or SJS, no signs of necrotizing infection Plan at this time is viral panel. Lab Data Labs: Lab Results 02/19/22 Range/Units 21:58 COVID-19 ([facility]) Positive A (Negative) COVID-19 Clin Com See Note Discharge Plan Discharge Clinical Impression: COVID-19, Abscess, Cellulitis Patient Disposition: Home, Self-Care Instructions: COVID-19 (Coronavirus Disease 2019) (ED) Additional Instructions: Take your medications as prescribed. If you were prescribed antibiotics today, it is important that you take your medication to their entirety, do not skip any doses, do not finish them early. Today you tested positive for COVID-19. Take Ibuprofen or Tylenol as needed for fevers or body aches. Quarantine for 5 days and ensure you wear a mask. After 5 days you should wear a mask for 5 days after that. Practice social distancing and good hand hygiene. Drink plenty of fluids. Follow-up with your primary care provider this week. Return to the emergency department with new or worsening symptoms. In case of emergency call 911 You can purchase a pulse oximeter from your local pharmacy or grocery store, and monitor your oxygen saturation if it goes below 94% you should return to the emergency department for further evaluation. Apply warm compresses to the area of the abscess. Return if abscess becomes larger, more red, or with discharge Prescriptions: New doxycycline hyclate 100 mg capsule 100 mg PO BID 10 Days Qty: 20 0RF cephalexin 500 mg tablet 500 mg PO Q6H 10 Days Qty: 40 0RF No Action oxycodone 5 mg tablet 5 mg PO Q4H PRN (Reason: pain (scale score 7-10)) Qty: 24 0RF docusate sodium [Colace] 100 mg capsule 100 mg PO BID PRN (Reason: constipation) Qty: 30 0RF Referrals: Physician,None [Primary Care Provider] - 2 days Stand Alone Forms: Work/School Release
[2022-02-19 22:48] VITALS: BP 170/80; PULSE 91; RESP 18; TEMP 38.3; O2SAT 97
[2022-02-19 22:48] LABS: IDNOW Serial# 08D9AD1C; Influenza A Negative (Negative); Influenza B2 Negative (Negative)
== END 2022-02-19 23:00 | disposition home or self-care (01) ==
PROVIDERS: Emergency Provider Emergency Medicine
DX: U07.1 COVID-19 (principal); L02.214 Cutaneous abscess of groin; L03.314 Cellulitis of groin; R50.9 Fever, unspecified; R00.0 Tachycardia, unspecified; F17.210 Nicotine dependence, cigarettes, uncomplicated; F12.90 Cannabis use, unspecified, uncomplicated
CPT/HCPCS: 87502; 87635; 99283